=== PATIENT | female | born 1995 | race African-American/Black ===

== ENCOUNTER 2017-01-17 19:23 | Emergency (ER) | payer OTHER ==
[~2017-01-17] VITALS: Ht 154.9 cm; Wt 59.6 kg
[~2017-01-17 19:23] MED LIST: BUTA1CAP29 PO; NAPR500T3 PO; ONDA4TAB7 PO; RANI150T2 PO
[2017-01-17] MEDS ORDERED: 0.9 % SODIUM CHLORIDE 10 ML DISP.SYRIN. IV PRN (19:45)
[2017-01-17] MEDS ORDERED: IV NORMAL SALINE 500ML 500 ML IV SCH (20:00)
[2017-01-17 20:14] LABS: BILIRUBIN,URINE NEG (NEG); CLARITY,URINE CLEAR; COLOR,URINE STRAW; GLUCOSE,URINE NEG (NEG)
[2017-01-17 20:15] LABS: BACTERIA,URINE 0 /HPF (0-FEW); NITRITE,URINE NEG (NEG); RBC,URINE 0 /HPF (0-2); SQUAMOUS EPITHELIAL CELL,UR MANY /LPF; UROBILINOGEN,URINE 1 mg/dL (0.2 mg/dL); WBC,URINE OCC /HPF (0-4)
[2017-01-17 20:26] LABS: BASO # 0.1 x10^3/uL (0.0-0.2); BASO % 1 % (0-3); EOS # 0.4 x10^3/uL (0.0-0.7); EOS % 4 % (0-3); HEMATOCRIT 38.7 % (36.0-47.0); HEMOGLOBIN 12.6 g/dL (12.0-15.5); LYMPH # 2.3 x10^3/uL (1.0-4.8); LYMPH % 26 % (24-48); MEAN CORPUSCULAR HEMOGLOBIN 29 pg (25-35); MEAN CORPUSCULAR HGB CONC 33 g/dL (31-37); MEAN CORPUSCULAR VOLUME 88 fL (79-100); MONO # 0.5 x10^3/uL (0.0-1.1); MONO % 6 % (0-9); NEUT # 5.7 x10^3uL (1.8-7.7); NEUT % 64 % (31-73); PLATELET COUNT 224 x10^3/uL (140-400); RED CELL DISTRIBUTION WIDTH 12.7 % (11.5-14.5)
[2017-01-17 20:32] LABS: PREG TEST PT QUAL POSITIVE (NEG)
--- NOTE | 2017-01-17 20:57 | PHYS DOC ---
General Chief Complaint: VAGINAL BLEEDING Stated Complaint: SPOTTING,CRAMPING 9 WKS Time Seen by MD: 19:42 Problems: History of Present Illness Initial Comments Patient is a pleasant 21-year-old female 4 3 who is approximately 9 weeks by last menstrual period who for the last week has been suffering from nausea and intermittent abdominal pain in the lower abdomen described as crampy in nature with no radiation to the back. She's had mild vaginal bleeding and spotting with no passage of clots or tissue. Patient denies any trauma. She denies any prior bleeding issues or dyscrasias. Patient denies any fevers chills diarrhea UTI symptoms vaginal discharge associated with sexual transmitted disease. She does have routine [employer] care from Dr. Adamson at [place]. Timing/Duration: changing over time, intermittent Severity/Quality: mild Location: periumbilical, vaginal Radiation: none Activities at Onset: none Prior Genitourinary Problems: similar symptoms Modifying Factors: improves with movement, improves with rest Associated Symptoms: abdominal pain, nausea/vomiting Allergies: Coded Allergies: No Known Drug Allergies (Unverified , 12/17/13) Past Medical History Medical History: therapeutic , ectopic (some years back.) Surgical History: other (ectopic ) Para: 8 : 8 LMP (Females 10-50): 3 months Family History Significant Family History: no pertinent family hx Social History Smoker: non-smoker Alcohol: none Drugs: none Review of Systems Constitutional: no symptoms reported EENTM: no symptoms reported Respiratory: no symptoms reported Cardiovascular: no symptoms reported Gastrointestinal: abdominal pain (crampy in nature) nausea vomiting (bili is nonbloody) Genitourinary: denies no symptoms reported, denies see HPI, denies burning, denies discharge, denies dysuria, denies frequency, denies flank pain, denies hematuria, denies incontinence, denies pain, denies urgency, denies other Musculoskeletal: no symptoms reported Skin: no symptoms reported Psychiatric/Neurological: no symptoms reported Endocrine: no symptoms reported Hematologic/Lymphatic: no symptoms reported All Other Systems: Reviewed and Negative Physical Exam General Appearance: WD/WN, no apparent distress HEENT: PERRL/EOMI, normal ENT inspection Neck: full range of motion Cardiovascular/Respiratory: regular rate, rhythm, no M/R/G, normal peripheral pulses Gastrointestinal: normal bowel sounds, non tender, no organomegaly, no pulsatile mass Pelvic: external exam normal, speculum exam normal, bimanual exam normal, no cerv. motion tender, no masses Back: normal inspection, no CVA tenderness Extremities: normal range of motion Neurologic/Psychiatric: alert, normal mood/affect, oriented x 3 Skin: normal color, warm/dry Lymphatic: no adenopathy Orders, Labs, Meds Laboratory Tests Test 01/17/17 19:34 01/17/17 20:00 Urine Collection Type Unknown Urine Color Straw Urine Clarity Clear Urine pH 7.0 Urine Specific [place] 1.015 Urine Protein Neg (NEG-TRACE) Urine Glucose (UA) Negmg/dL (NEG) Urine Ketones (Stick) Negmg/dL (NEG) Urine Blood Neg (NEG) Urine Nitrite Neg (NEG) Urine Bilirubin Neg (NEG) Urine Urobilinogen Dipstick 1mg/dL (0.2 mg/dL) Urine Leukocyte Esterase Neg (NEG) Urine RBC 0/HPF (0-2) Urine WBC Occ/HPF (0-4) Urine Squamous Epithelial Cells Many/LPF Urine Bacteria 0/HPF (0-FEW) White Blood Count 9.0x10^3/uL (4.0-11.0) Red Blood Count 4.40x10^6/uL (3.50-5.40) Hemoglobin 12.6g/dL (12.0-15.5) Hematocrit 38.7% (36.0-47.0) Mean Corpuscular Volume 88fL (79-100) Mean Corpuscular Hemoglobin 29pg (25-35) Mean Corpuscular Hemoglobin Concent 33g/dL (31-37) Red Cell Distribution Width 12.7% (11.5-14.5) Platelet Count 224x10^3/uL (140-400) Neutrophils (%) (Auto) 64% (31-73) Lymphocytes (%) (Auto) 26% (24-48) Monocytes (%) (Auto) 6% (0-9) Eosinophils (%) (Auto) 4% (0-3) Basophils (%) (Auto) 1% (0-3) Neutrophils # (Auto) 5.7x10^3uL (1.8-7.7) Lymphocytes # (Auto) 2.3x10^3/uL (1.0-4.8) Monocytes # (Auto) 0.5x10^3/uL (0.0-1.1) Eosinophils # (Auto) 0.4x10^3/uL (0.0-0.7) Basophils # (Auto) 0.1x10^3/uL (0.0-0.2) Serum Test, Qualitative Positive (NEG) PATIENT: TOM JOEL ACCOUNT: [id number] : 1995 LOCATION: ER AGE: 21 SEX: F EXAM STATUS: REG ER ORD. PHYSICIAN: BARBARA ROY MD REASON: vaginal bleeding in early PROCEDURE: OB <14 WKS Examination: Obstetric ultrasound less than 14 weeks HISTORY History of spotting, cramping for 2 weeks. COMPARISON None available. Findings The uterus measures 11.0 x 8.0 x 6.3 centimeters. The cervical length measures 3.3 centimeters. The right ovary measures 4.8 x 2.5 x 2.5 centimeters. The left ovary measures 4.6 x 3.7 x 3.1 centimeters. Intrauterine gestational sac identified. A yolk sac is identified. Mier-rump length measures 5 millimeters corresponding to 6 weeks and 4 days. heart rate is 125 beats per minute. LMP 11/27/2016. Clinical age 7 weeks and 2 days with estimated date of delivery by LMP 09/03/2017. Estimated gestational age 6 weeks and 2 days by today's ultrasound. Estimated date of delivery by this ultrasound 09/10/2017. There is a 1.1 centimeter hypoechoic region identified superior and to the right of the gestational sac. IMPRESSION 1. Single living intrauterine with gestational age is 6 weeks and 4 days. 2. There is a 1.1 centimeter hypo echogenicity identified superior and to the right of the gestational sac likely a subchorionic bleed. Electronically signed by: Elia Shaikh (Jan 17, 2017 21:37:23) DICTATED AND SIGNED BY: ELIA SHAIKH MD DATE: 01/17/17 2137 CC: BARBARA ROY MD; PCP,NO ~ Course of her visit patient was hemodynamically stable with no limits of abdominal pain just mild nausea. She was given some Zofran and fluids are encouraged visit which improved her symptoms. Ultrasound imaging IUP 6 weeks 4 days gestation with no evidence of ectopic or free fluid in the abdomen. There is a small 1 cm area of hypoechoic superior to the itself which likely represent a subchorionic bleed. Patient will be given bleeding precautions and follow-up with her [employer]. Vital signs also been reviewed which were within normal limits. BARBARA ROY MD Jan 17, 2017 20:57
--- NOTE | 2017-01-17 21:38 | RAD ---
Examination: Obstetric ultrasound less than 14 weeks HISTORY History of spotting, cramping for 2 weeks. COMPARISON None available. Findings The uterus measures 11.0 x 8.0 x 6.3 centimeters. The cervical length measures 3.3 centimeters. The right ovary measures 4.8 x 2.5 x 2.5 centimeters. The left ovary measures 4.6 x 3.7 x 3.1 centimeters. Intrauterine gestational sac identified. A yolk sac is identified. Mar-Mac-rump length measures 5 millimeters corresponding to 6 weeks and 4 days. heart rate is 125 beats per minute. LMP 11/27/2016. Clinical age 7 weeks and 2 days with estimated date of delivery by LMP 09/03/2017. Estimated gestational age 6 weeks and 2 days by today's ultrasound. Estimated date of delivery by this ultrasound 09/10/2017. There is a 1.1 centimeter hypoechoic region identified superior and to the right of the gestational sac. IMPRESSION 1. Single living intrauterine with gestational age is 6 weeks and 4 days. 2. There is a 1.1 centimeter hypo echogenicity identified superior and to the right of the gestational sac likely a subchorionic bleed. Electronically signed by: Elia Shaikh (Jan 17, 2017 21:37:23)
[2017-01-17 22:15] VITALS: BP 110/76
[2017-01-17] MEDS ORDERED: ONDANSETRON PF 4 MG/2 ML VIAL. IV ONE (22:30)
[2017-01-17] MEDS ORDERED: DIPHENHYDRAMINE 50 MG/ML VIAL IM ONE (22:45)
== END 2017-01-17 22:22 | disposition home or self-care (01) ==
LOC: ER 19:23
DX: O26.891 Other specified pregnancy related conditions, first trimester (principal); R10.30 Lower abdominal pain, unspecified; R11.0 Nausea; O46.91 Antepartum hemorrhage, unspecified, first trimester; Z3A.09 9 weeks gestation of pregnancy
CPT/HCPCS: 36415; 76801; 81001; 84702; 84703; 85027; 86900; 86901; 96361; 96372; 96374; 99285; J1200; J2405; J7040

== ENCOUNTER 2017-01-25 14:16 | Emergency (ER) | payer OTHER ==
[~2017-01-25] VITALS: Ht 154.9 cm; Wt 59.0 kg
[2017-01-25] MEDS ORDERED: METO10TA81 PO (15:09)
--- NOTE | 2017-01-25 15:10 | PHYS DOC ---
Past History Past Medical History: No Pertinent History Past Surgical History: Cholecystectomy Smoking: Non-smoker Alcohol Use: None Drug Use: None Adult General Chief Complaint Chief Complaint: HEADACHE HPI HPI Patient is a 21 year old female who presents with complaint of headache. Patient states that she has had a headache for the past 2 days. Patient states that her headache is left-sided. Patient also states that she has associated vision changes in the right eye which she states is typical for her previous history of headaches. Patient has history of migraine headaches. Patient states that she normally takes Tylenol or ibuprofen for her symptoms. Patient is currently 8 weeks . Patient is following with Dr. Garduno for care. Patient denies any abdominal pain, vaginal bleeding, dysuria, or urinary frequency. Patient currently rates her pain as 8 out of 10. Patient denies any focal loss of motor strength, vision loss, or difficulty with speech or swallowing associated with her symptoms. Review of Systems Review of Systems Constitutional: Denies fever or chills [] Eyes: Denies change in visual acuity, redness, or eye pain [] HENT: Denies nasal congestion or sore throat [] Respiratory: Denies cough or shortness of breath [] Cardiovascular: Denies chest pain or edema [] GI: Denies abdominal pain, nausea, vomiting, bloody stools or diarrhea [] : Denies vaginal bleeding, dysuria or hematuria [] Musculoskeletal: Denies back pain or joint pain [] Integument: Denies rash or skin lesions [] Neurologic: Headache, denies focal weakness or sensory changes [] Allergies Allergies Allergies Coded Allergies Type Severity Reaction Last Updated Verified No Known Drug Allergies 01/25/17 No Physical Exam Physical Exam Constitutional: Well developed, well nourished, no acute distress, non-toxic appearance. [] HENT: Normocephalic, atraumatic, bilateral external ears normal, oropharynx moist, no oral exudates, nose normal. [] Eyes: PERRLA, EOMI, conjunctiva normal, no discharge. [] Neck: Normal range of motion, no tenderness, supple, no stridor. [] Cardiovascular:Heart rate regular rhythm, no murmur [] Lungs & Thorax: Bilateral breath sounds clear to auscultation [] Abdomen: Bowel sounds normal, soft, no tenderness, no masses, no pulsatile masses. [] Skin: Warm, dry, no erythema, no rash. [] Back: No tenderness, no CVA tenderness. [] Extremities: No tenderness, no cyanosis, no clubbing, ROM intact, no edema. [] Neurologic: Alert and oriented X 3, normal motor function, normal sensory function, no focal deficits noted. [] Current Patient Data Vital Signs Vital Signs Date Time Temp Pulse Resp B/P (MAP) Pulse Ox O2 Delivery O2 Flow Rate FiO2 01/25/17 14:28 97.7 57 18 95 Room Air EKG EKG Not performed [] Radiology/Procedures Radiology/Procedures Not performed [] Course & Med Decision Making Course & Med Decision Making Pertinent Labs and Imaging studies reviewed. (See chart for details) Patient's exam is benign and patient's symptoms appear consistent with previous episodes of migraine headaches. Patient was given oral Reglan and Tylenol in the emergency department for treatment. Spoke with patient regarding need for likely neurology referral as patient has not had this in the past for her headaches, however I did explain that her current may complicate a migraine workup and may also contribute to her headache syndrome. Patient written for prescription for Reglan for continued treatment. Advised patient to follow-up in one week with her primary doctor and return to emergency department for any worsening symptoms. Patient voiced understanding and in agreement with treatment plan. Dragon Disclaimer Dragon Disclaimer This chart was dictated in whole or in part using Voice Recognition software in a busy, high-work load, and often noisy Emergency Department environment. It may contain unintended and wholly unrecognized errors or omissions. Departure Departure: Impression: Primary Impression: Migraine Disposition: 01 HOME, SELF-CARE Condition: IMPROVED Referrals: PCP,SNEHA (PCP) Patient Instructions: Migraine Headache Additional Instructions: Follow-up with your primary doctor in 1 week for reevaluation. Return to the emergency department for any worsening symptoms. Scripts Metoclopramide Hcl (REGLAN) 10 Mg Tablet 1 TAB PO TID Y for HEADACHE, #30 TAB Prov: DARIUSZ HURTADO MD 01/25/17 Problem Qualifiers Primary Impression: Migraine Migraine type: with aura Status migrainosus presence: without status migrainosus Intractability: not intractable Qualified Codes: G43.109 - Migraine with aura, not intractable, without status migrainosus DARIUSZ HURTADO MD January 25, 2017 15:09
[2017-01-25] MEDS ORDERED: ACETAMINOPHEN 325 MG TABLET PO ONE (15:30)
[2017-01-25] MEDS ORDERED: METOCLOPRAMIDE 10 MG TABLET PO ONE (15:30)
[2017-01-25 15:35] VITALS: BP 107/47
== END 2017-01-25 15:40 | disposition home or self-care (01) ==
LOC: ER 14:16
DX: O26.891 Other specified pregnancy related conditions, first trimester (principal); G43.909 Migraine, unspecified, not intractable, without status migrainosus; Z3A.08 8 weeks gestation of pregnancy
CPT/HCPCS: 99283; J8597

== ENCOUNTER 2017-04-06 14:43 | Emergency (ER) | payer OTHER ==
[~2017-04-06] VITALS: Ht 154.9 cm; Wt 59.9 kg
[~2017-04-06 14:43] MED LIST changes: +METO10TA81 PO
[2017-04-06 16:10] VITALS: BP 95/58
[2017-04-06] MEDS ORDERED: ALPR0.25 PO (16:15)
--- NOTE | 2017-04-06 16:15 | PHYS DOC ---
Past History Past Medical History: No Pertinent History Past Surgical History: Cholecystectomy Smoking: Non-smoker Alcohol Use: None Drug Use: None Adult General Chief Complaint Chief Complaint: ANXIETY/PANIC ATTACK HPI HPI Patient is a 22 year old female who presents with complaint of anxiety. Patient states that she has been having difficulty with anxiety for several weeks, however she started having severe symptoms over the past 2-3 days. Patient is currently [address] Garduno for care. The patient states that she has had an unremarkable . The patient states that she has been getting frequent episodes where she has been feeling panic and anxiety. Patient states that she has had tightness in her chest associated with the symptoms. Patient denies chest pain at this time. Patient is not on any medications currently for anxiety. Patient denies any associated fevers, vomiting, abdominal pain, vaginal bleeding, or abnormal vaginal discharge. Due to her anxiety symptoms the patient came to the emergency department for evaluation. The patient states that her symptoms have slightly improved since onset earlier today. Review of Systems Review of Systems Constitutional: Anxiety, denies fever or chills [] Eyes: Denies change in visual acuity, redness, or eye pain [] HENT: Denies nasal congestion or sore throat [] Respiratory: Denies cough or shortness of breath [] Cardiovascular: Denies substernal chest pain or edema [] GI: Denies abdominal pain, nausea, vomiting, bloody stools or diarrhea [] : Denies dysuria or hematuria [] Musculoskeletal: Denies back pain or joint pain [] Integument: Denies rash or skin lesions [] Neurologic: Denies headache, focal weakness or sensory changes [] Allergies Allergies Allergies Coded Allergies Type Severity Reaction Last Updated Verified No Known Drug Allergies 01/25/17 No Physical Exam Physical Exam Constitutional: Alert, afebrile, appears mildly anxious. [] HENT: Normocephalic, atraumatic, bilateral external ears normal, oropharynx moist, no oral exudates, nose normal. [] Eyes: PERRLA, EOMI, conjunctiva normal, no discharge. [] Neck: Normal range of motion, no tenderness, supple, no stridor. [] Cardiovascular:Heart rate regular rhythm, no murmur [] Lungs & Thorax: Bilateral breath sounds clear to auscultation [] Abdomen: Bowel sounds normal, soft, no tenderness, no masses, no pulsatile masses. [] Skin: Warm, dry, no erythema, no rash. [] Back: No tenderness, no CVA tenderness. [] Extremities: No tenderness, no cyanosis, no clubbing, ROM intact, no edema. [] Neurologic: Alert and oriented X 3, normal motor function, normal sensory function, no focal deficits noted. [] Current Patient Data Vital Signs Vital Signs Date Time Temp Pulse Resp B/P (MAP) Pulse Ox O2 Delivery O2 Flow Rate FiO2 04/06/17 16:10 82 20 95/58 (70) 97 Room Air 04/06/17 14:43 98.1 EKG EKG Not performed [] Radiology/Procedures Radiology/Procedures heart rate 158 bpm [] Course & Med Decision Making Course & Med Decision Making Pertinent Labs and Imaging studies reviewed. (See chart for details) Patient appears nontoxic and patient's heart rate is within normal limits. I contacted the patient's ROLL WEIGHER, Dr. Garduno, and discussed the case with him. He stated that the patient could be prescribed Xanax to use as needed. The patient was prescribed 0.25 mg of Xanax to take twice a day as needed for anxiety symptoms. Advised patient to follow-up with Dr. Garduno in one to 2 weeks for reevaluation and return emergency department for any worsening symptoms. Patient was understanding and in agreement with treatment plan. Dragon Disclaimer Dragon Disclaimer This chart was dictated in whole or in part using Voice Recognition software in a busy, high-work load, and often noisy Emergency Department environment. It may contain unintended and wholly unrecognized errors or omissions. Departure Departure: Impression: Primary Impression: Anxiety Additional Impression: Second trimester Disposition: 01 HOME, SELF-CARE Condition: IMPROVED Referrals: PCP,NO (PCP) Patient Instructions: Anxiety and Panic Attacks Additional Instructions: Follow-up with Dr. Garduno and 1-2 weeks. Return to the emergency department for any worsening symptoms. Scripts Alprazolam (XANAX) 0.25 Mg Tablet 1 TAB PO BID Y for ANXIETY / AGITATION, #20 TAB Prov: DARIUSZ HURTADO MD 04/06/17 Problem Qualifiers DARIUSZ HURTADO MD Apr 06, 2017 16:15
== END 2017-04-06 16:25 | disposition home or self-care (01) ==
LOC: ER 14:43
DX: O99.342 Other mental disorders complicating pregnancy, second trimester (principal); F41.9 Anxiety disorder, unspecified; Z3A.18 18 weeks gestation of pregnancy
CPT/HCPCS: 99283

== ENCOUNTER → 2017-04-12 | Outpatient (CLI) | payer OTHER ==
[2017-04-06 16:10] VITALS: BP 95/58
[~2017-04-12] MED LIST changes: +ALPR0.25 PO
--- NOTE | 2017-04-12 15:26 | RAD ---
EXAM: Obstetric ultrasound. HISTORY: Size/date discrepancy. COMPARISON: None. FINDINGS: Sonographic evaluation of the pelvis and fetus was performed transabdominally. There is a single fetus in breech presentation. heart rate is 141 bpm. Estimated gestational age based on measurements is 18 weeks 4 days. Estimated weight is 246 g. Individual measurements are commensurate. The placenta is anterior and fundal. Amniotic fluid volume is normal with amniotic fluid index 13.8 cm. The cervix is closed and measures 4.2 cm. The posterior fossa appears normal. There is no hydrocephalus. The cord insertion appears normal. The cord is three-vessel. The heart is four-chamber. Images of the spine reveal no defects. extremities appear normal. Images of the kidneys reveal no hydronephrosis. The stomach and bladder are visualized. Nose/lip morphology appears normal. The right ovary measures 2.5 x 1.7 x 2.2 cm and appears normal. The left is not visualized currently. IMPRESSION: 1. Single fetus in breech presentation. Estimated gestational age based on measurements 18 weeks 4 days. heart rate 141 bpm.
== END | disposition home or self-care (01) ==
LOC: US 09:58
PROVIDERS: ATTEND Obstetrics & Gynecology
DX: O32.1XX0 Maternal care for breech presentation, not applicable or unspecified (principal); O26.842 Uterine size-date discrepancy, second trimester; Z3A.18 18 weeks gestation of pregnancy
CPT/HCPCS: 76805

== ENCOUNTER 2019-02-12 10:30 | Emergency (ER) | payer OTHER ==
[~2019-02-12] VITALS: Ht 154.9 cm; Wt 61.2 kg
[~2019-02-12 10:30] MED LIST changes: +NAPR-514 PO; -NAPR500T3 PO
[2019-02-12 10:41] VITALS: BP 111/70
[2019-02-12] MEDS ORDERED: NAPR-683 PO (10:53)
[2019-02-12] MEDS ORDERED: CYCL-331 PO (10:54)
--- NOTE | 2019-02-12 10:54 | PHYS DOC ---
Past History Past Medical History: Anxiety Past Surgical History: Cholecystectomy, Tubal ligation Smoking: Non-smoker Alcohol Use: None Drug Use: None Adult General Chief Complaint Chief Complaint: jaw pain HPI HPI Patient is a 23 year old female who presents with complaint of right-sided jaw pain. Notes pain is been present over the past 2 days. States that the pain radiates along the right jaw towards the right anterior portion of the ear. Worsens when she opens her mouth or tries to chew on that side. Denies any dental pain or jaw swelling. No fever. Has not taking medications today for symptoms. Denies previous history of similar symptoms. No significant past medical history. Denies any recent trauma. Review of Systems Review of Systems Constitutional: Denies fever or chills [] Eyes: Denies change in visual acuity, redness, or eye pain [] HENT: Jaw pain[] Respiratory: Denies cough or shortness of breath [] Cardiovascular: Denies chest pain or edema[] GI: Denies abdominal pain, nausea, vomiting, bloody stools or diarrhea [] : Denies dysuria or hematuria [] Musculoskeletal: Denies back pain or joint pain [] Integument: Denies rash or skin lesions [] Neurologic: Denies headache, focal weakness or sensory changes [] Endocrine: Denies polyuria or polydipsia [] All other systems were reviewed and found to be within normal limits, except as documented in this note. Allergies Allergies Allergies Coded Allergies Type Severity Reaction Last Updated Verified No Known Drug Allergies 02/12/19 No Physical Exam Physical Exam Constitutional: Well developed, well nourished, no acute distress, non-toxic appearance. [] HENT: Normocephalic, atraumatic, bilateral external ears normal, no appreciable jaw swelling, no dental tenderness, tenderness to palpation along right TMJ, normal jaw occlusion. [] Eyes: PERRLA, EOMI, conjunctiva normal, no discharge. [] Neck: Normal range of motion, no tenderness, supple, no stridor. [] Cardiovascular:Heart rate regular rhythm, no murmur [] Lungs & Thorax: Bilateral breath sounds clear to auscultation [] Abdomen: Bowel sounds normal, soft, no tenderness, no masses, no pulsatile masses. [] Skin: Warm, dry, no erythema, no rash. [] Back: No tenderness, no CVA tenderness. [] Extremities: No tenderness, no cyanosis, no clubbing, ROM intact, no edema. [] Neurologic: Alert and oriented X 3, normal motor function, normal sensory function, no focal deficits noted. [] Current Patient Data Vital Signs Vital Signs Date Time Temp Pulse Resp B/P (MAP) Pulse Ox O2 Delivery O2 Flow Rate FiO2 02/12/19 10:41 97.1 77 17 94 Lab Results Not performed EKG EKG Not performed[] Radiology/Procedures Radiology/Procedures Not performed[] Course & Med Decision Making Course & Med Decision Making Pertinent Labs and Imaging studies reviewed. (See chart for details) Patient's symptoms appear consistent with arthralgia to the right TMJ. Prescribed Naprosyn and Flexeril as patient does have noted tightness along the right jaw musculature. Advised follow-up with primary doctor in the next 5-7 days if symptoms are not improving and return to the emergency department for any worsening symptoms. Patient was understanding and in agreement with treatment plan. Dragon Disclaimer Dragon Disclaimer This electronic medical record was generated, in whole or in part, using a voice recognition dictation system. Departure Departure: Impression: Primary Impression: TMJ arthralgia Disposition: HOME, SELF-CARE Condition: STABLE Referrals: PCP,NO (PCP) Patient Instructions: Temporomandibular Joint Pain-Brief Additional Instructions: Follow-up with your primary doctor in 1 week if symptoms are not improving. Return to the emergency department for any worsening symptoms. Scripts Cyclobenzaprine Hcl (CYCLOBENZAPRINE HCL) 10 Mg Tablet 1 TAB PO QHS PRN for MUSCLE SPASMS, #10 TAB Prov: DARIUSZ HURTADO MD 02/12/19 Naproxen (NAPROSYN) 500 Mg Tablet 1 TAB PO BID, #20 TAB 0 Refills Prov: DARIUSZ HURTADO MD 02/12/19 Problem Qualifiers Primary Impression: TMJ arthralgia Laterality: right Qualified Codes: M26.621 - Arthralgia of right temporomandibular joint DARIUSZ HURTADO MD February 12, 2019 10:54
== END 2019-02-12 11:05 | disposition home or self-care (01) ==
LOC: ER 10:30
DX: M26.621 Arthralgia of right temporomandibular joint (principal); F41.9 Anxiety disorder, unspecified
CPT/HCPCS: 99283

== ENCOUNTER 2019-03-28 09:49 | Emergency (ER) | payer SELFPAY ==
[~2019-03-28] VITALS: Ht 154.9 cm; Wt 67.1 kg
[~2019-03-28 09:49] MED LIST changes: +CYCL-331 PO; +NAPR-683 PO
[2019-03-28 10:00] VITALS: BP 110/62
--- NOTE | 2019-03-28 10:31 | PHYS DOC ---
Past History Past Medical History: Anxiety Past Surgical History: Cholecystectomy, Tubal ligation Smoking: Non-smoker Alcohol Use: None Drug Use: None Adult General Chief Complaint Chief Complaint: SORE THROAT HPI HPI 24-year-old female presents with sore throat and decreased voice strength to the last 7 days. The patient first woke up with a mild sore throat and decreased strength of her voice. She is continued to have hoarseness that has gotten worse and got better for the last 1 week. The last 2 days, she has had sore throat. It is worse in the morning and improve somewhat throughout the day. She denies fever or chills. She wants to make sure she doesn't have strep. Review of Systems Review of Systems Constitutional: Denies fever or chills [] Eyes: Denies change in visual acuity, redness, or eye pain [] HENT: sore throat [] Respiratory: Denies cough or shortness of breath [] Cardiovascular: No additional information not addressed in HPI [] GI: Denies abdominal pain, nausea, vomiting, bloody stools or diarrhea [] : Denies dysuria or hematuria [] Musculoskeletal: Denies back pain or joint pain [] Integument: Denies rash or skin lesions [] Neurologic: Denies headache, focal weakness or sensory changes [] Endocrine: Denies polyuria or polydipsia [] All other systems were reviewed and found to be within normal limits, except as documented in this note. Allergies Allergies Allergies Coded Allergies Type Severity Reaction Last Updated Verified No Known Drug Allergies 02/12/19 No Physical Exam Physical Exam Constitutional: Well developed, well nourished, no acute distress, non-toxic appearance. [] HENT: Normocephalic, atraumatic, bilateral external ears normal, oropharynx moist, post nasal drip with no tonsillar exudates. Bilateral tympanic membranes normal[] Eyes: PERRLA, EOMI, conjunctiva normal, no discharge. [] Neck: Normal range of motion, no tenderness, supple, no stridor. [] Cardiovascular:Heart rate regular rhythm, no murmur [] Lungs & Thorax: Bilateral breath sounds clear to auscultation [] Abdomen: Bowel sounds normal, soft, no tenderness, no masses, no pulsatile masses. [] Skin: Warm, dry, no erythema, no rash. [] Back: No tenderness, no CVA tenderness. [] Extremities: No tenderness, no cyanosis, no clubbing, ROM intact, no edema. [] Neurologic: Alert and oriented X 3, normal motor function, normal sensory function, no focal deficits noted. [] Psychologic: Affect normal, judgement normal, mood normal. [] EKG EKG [] Radiology/Procedures Radiology/Procedures [] Course & Med Decision Making Course & Med Decision Making Pertinent Labs and Imaging studies reviewed. (See chart for details) [] Dragon Disclaimer Dragon Disclaimer This electronic medical record was generated, in whole or in part, using a voice recognition dictation system. Departure Departure: Impression: Primary Impression: Acute viral pharyngitis Disposition: HOME, SELF-CARE Condition: STABLE Referrals: PCP,SNEHA (PCP) Patient Instructions: Viral Pharyngitis EVER TORREZ DO Mar 28, 2019 10:31
== END 2019-03-28 10:36 | disposition home or self-care (01) ==
LOC: ER 09:49
DX: J02.8 Acute pharyngitis due to other specified organisms (principal); B97.89 Other viral agents as the cause of diseases classified elsewhere
CPT/HCPCS: 87070; 87880; 99283

== ENCOUNTER → 2019-09-01 | Outpatient (CLI) | payer OTHER ==
--- NOTE | 2019-09-02 15:03 | RAD ---
Transabdominal pelvic ultrasound without comparison for pelvic pain. TECHNIQUE AND FINDINGS: Real-time grayscale and color and spectral Doppler evaluation of the pelvic organs is performed from a transabdominal approach. The urinary bladder is distended and provides adequate acoustic window. The uterus is anteverted and measures 7.5 x 4.7 x 3.8 cm. No myometrial abnormality is identified. The endometrium is normal in appearance measuring 7 mm in thickness. The right ovary measures 2.6 x 3.0 x 2.0 cm and demonstrates normal follicular character with normal blood flow. Left ovary measures 3.4 x 2.7 x 1.5 cm and also demonstrates normal follicular character with normal blood flow. No adnexal masses are identified. No free fluid is seen. IMPRESSION: 1. No sonographically discernible pelvic abnormality. Electronically signed by: Alexander Ferrera MD (09/02/2019 3:01 PM) [facility]
== END | disposition home or self-care (01) ==
LOC: US 13:35
PROVIDERS: ATTEND Obstetrics & Gynecology
DX: N85.4 Malposition of uterus (principal); N32.89 Other specified disorders of bladder; N94.6 Dysmenorrhea, unspecified
CPT/HCPCS: 76856

== ENCOUNTER 2019-09-30 21:40 | Emergency (ER) | payer OTHER ==
[~2019-09-30] VITALS: Ht 154.9 cm; Wt 67.1 kg
[2019-09-30 21:53] VITALS: BP 154/70
[2019-09-30 22:30] LABS: U PREG PATIENT NEGATIVE (NEG)
[2019-09-30 22:33] LABS: BACTERIA,URINE FEW /HPF (0-FEW); BILIRUBIN,URINE NEG (NEG); CLARITY,URINE HAZY; COLOR,URINE YELLOW; GLUCOSE,URINE NEG (NEG); NITRITE,URINE NEG (NEG); SQUAMOUS EPITHELIAL CELL,UR FEW /LPF; UROBILINOGEN,URINE 0.2 mg/dL (0.2 mg/dL)
[2019-09-30] MEDS ORDERED: SULF1TAB24 PO (22:46)
--- NOTE | 2019-09-30 22:47 | PHYS DOC ---
Past History Past Medical History: Anxiety, UTI Past Surgical History: Cholecystectomy, Tubal ligation Smoking: Non-smoker Alcohol Use: None Drug Use: None Adult General Chief Complaint Chief Complaint: FLANK PAIN HPI HPI Patient is a 24-year-old otherwise healthy female who presents with low back pain and urinary frequency. She denies any gross hematuria. She has had some burning with urination. She has not had any vaginal bleeding or discharge. She denies dyspareunia.[] Review of Systems Review of Systems Constitutional: Denies fever or chills [] Eyes: Denies change in visual acuity, redness, or eye pain [] HENT: Denies nasal congestion or sore throat [] Respiratory: Denies cough or shortness of breath [] Cardiovascular: No additional information not addressed in HPI [] GI: Denies abdominal pain, nausea, vomiting, bloody stools or diarrhea [] : Per history of present illness[] Musculoskeletal: Denies back pain or joint pain [] Integument: Denies rash or skin lesions [] Neurologic: Denies headache, focal weakness or sensory changes [] Endocrine: Denies polyuria or polydipsia [] All other systems were reviewed and found to be within normal limits, except as documented in this note. Allergies Allergies Allergies Coded Allergies Type Severity Reaction Last Updated Verified No Known Drug Allergies 02/12/19 No Physical Exam Physical Exam Constitutional: Well developed, well nourished, no acute distress, non-toxic appearance. [] HENT: Normocephalic, atraumatic, bilateral external ears normal, oropharynx moist, no oral exudates, nose normal. [] Eyes: PERRLA, EOMI, conjunctiva normal, no discharge. [] Neck: Normal range of motion, no tenderness, supple, no stridor. [] Cardiovascular:Heart rate regular rhythm, no murmur [] Lungs & Thorax: Bilateral breath sounds clear to auscultation [] Abdomen: Bowel sounds normal, soft, no tenderness, no masses, no pulsatile masses. [] Skin: Warm, dry, no erythema, no rash. [] Back: No tenderness, no CVA tenderness. [] Extremities: No tenderness, no cyanosis, no clubbing, ROM intact, no edema. [] Neurologic: Alert and oriented X 3, normal motor function, normal sensory function, no focal deficits noted. [] Psychologic: Affect normal, judgement normal, mood normal. [] Current Patient Data Vital Signs Vital Signs Date Time Temp Pulse Resp B/P (MAP) Pulse Ox O2 Delivery O2 Flow Rate FiO2 09/30/19 21:53 99.0 96 16 98 Room Air Lab Results Laboratory Tests Test 09/30/19 21:50 Urine Collection Type Unknown Urine Color Yellow Urine Clarity Hazy Urine pH 6.0 Urine Specific [place] 1.015 Urine Protein Neg (NEG-TRACE) Urine Glucose (UA) Neg mg/dL (NEG) Urine Ketones (Stick) Neg mg/dL (NEG) Urine Blood Neg (NEG) Urine Nitrite Neg (NEG) Urine Bilirubin Neg (NEG) Urine Urobilinogen Dipstick 0.2 mg/dL (0.2 mg/dL) Urine Leukocyte Esterase Small (NEG) Urine RBC 1-2 /HPF (0-2) Urine WBC 5-10 /HPF (0-4) Urine Squamous Epithelial Cells Few /LPF Urine Bacteria Few /HPF (0-FEW) Urine Test Negative (NEG) EKG EKG [] Radiology/Procedures Radiology/Procedures [] Course & Med Decision Making Course & Med Decision Making Pertinent Labs and Imaging studies reviewed. (See chart for details) [] Dragon Disclaimer Dragon Disclaimer This electronic medical record was generated, in whole or in part, using a voice recognition dictation system. Departure Departure: Impression: Primary Impression: Urinary tract infection Disposition: 01 HOME, SELF-CARE Condition: STABLE Referrals: PCP,NO (PCP) Patient Instructions: Urinary Tract Infection Additional Instructions: Return to the emergency department with any new or concerning symptoms Scripts Sulfamethoxazole/Trimethoprim (BACTRIM DS TABLET) 1 Each Tablet 1 TAB PO BID for URINARY TRACT INFECTION for 5 Days, #10 TAB 0 Refills Prov: MODESTA DUMONT DO 09/30/19 Problem Qualifiers Primary Impression: Urinary tract infection Urinary tract infection type: acute cystitis Hematuria presence: without hematuria Qualified Codes: N30.00 - Acute cystitis without hematuria MODESTA DUMONT DO Sep 30, 2019 22:47
== END 2019-09-30 22:50 | disposition home or self-care (01) ==
LOC: ER 21:40
DX: N30.00 Acute cystitis without hematuria (principal); Z87.440 Personal history of urinary (tract) infections; Z98.51 Tubal ligation status; Z90.49 Acquired absence of other specified parts of digestive tract
CPT/HCPCS: 81001; 81025; 87086; 99284

== ENCOUNTER 2020-02-24 12:24 | Emergency (ER) | payer OTHER ==
[~2020-02-24] VITALS: Ht 154.9 cm; Wt 67.1 kg
[~2020-02-24 12:24] MED LIST changes: +SULF1TAB24 PO
[2020-02-24 12:33] VITALS: BP 110/74
[2020-02-24] MEDS ORDERED: METH-38 PO (13:06)
--- NOTE | 2020-02-24 13:06 | PHYS DOC ---
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 She states she thinks she hurt it at work when she was lifting up her rather heavy package. She states she feels a bulge in her back. The pain is worse when she moves in certain directions. Much worse when she bends over and tries to stand up straight. She denies any dysuria or gross hematuria. [] Review of Systems: Review of Systems: Constitutional: Denies fever or chills Eyes: Denies change in visual acuity HENT: Denies nasal congestion or sore throat Respiratory: Denies cough or shortness of breath Cardiovascular: Denies chest pain or edema GI: Denies abdominal pain, nausea, vomiting, bloody stools or diarrhea : Denies dysuria Musculoskeletal: Per HPI Integument: Denies rash Neurologic: Denies headache, focal weakness or sensory changes Endocrine: Denies polyuria or polydipsia Lymphatic: Denies swollen glands Psychiatric: Denies depression or anxiety Heart Score: Risk Factors: Risk Factors: DM, Current or recent (<one month) smoker, HTN, HLP, family history of CAD, obesity. Risk Scores: Score 0 - 3: 2.5% MACE over next 6 weeks - Discharge Home Score 4 - 6: 20.3% MACE over next 6 weeks - Admit for Clinical Observation Score 7 - 10: 72.7% MACE over next 6 weeks - Early Invasive Strategies Allergies: Allergies: Allergies Coded Allergies Type Severity Reaction Last Updated Verified No Known Drug Allergies 02/12/19 No Physical Exam: PE: Constitutional: Well developed, well nourished, no acute distress, non-toxic appearance. [] HENT: Normocephalic, atraumatic, bilateral external ears normal, oropharynx moist, no oral exudates, nose normal. [] Eyes: PERRLA, EOMI, conjunctiva normal, no discharge. [] Neck: Normal range of motion, no tenderness, supple, no stridor. [] Cardiovascular:Heart rate regular rhythm, no murmur [] Lungs & Thorax: Bilateral breath sounds clear to auscultation [] Abdomen: Bowel sounds normal, soft, no tenderness, no masses, no pulsatile masses. [] Skin: Warm, dry, no erythema, no rash. [] Back: No tenderness, no CVA tenderness. [] Extremities: No tenderness, no cyanosis, no clubbing, ROM intact, no edema. [] Neurologic: Alert and oriented X 3, normal motor function, normal sensory function, no focal deficits noted. [] Psychologic: Anxious [] Current Patient Data: Vital Signs: Vital Signs Date Time Temp Pulse Resp B/P (MAP) Pulse Ox O2 Delivery O2 Flow Rate FiO2 02/24/20 12:33 98.1 92 16 110/74 (86) 98 Room Air EKG: EKG: [] Radiology/Procedures: Radiology/Procedures: [] Course & Med Decision Making: Course & Med Decision Making Pertinent Labs and Imaging studies reviewed. (See chart for details) [] Dragon Disclaimer: Dragon Disclaimer: This electronic medical record was generated, in whole or in part, using a voice recognition dictation system. Departure Departure: Impression: Primary Impression: Lumbar strain Qualified Codes: S39.012A - Strain of muscle, fascia and tendon of lower back, initial encounter Disposition: HOME/RESIDENCE PRIOR TO ADM Condition: STABLE Referrals: PCP,NO (PCP) Patient Instructions: Back Pain, Adult Additional Instructions: Return to the emergency department with any new or concerning symptoms Scripts Methocarbamol (ROBAXIN-750) 750 Mg Tablet 1 TAB PO BID for back pain for 30 Days, #60 TAB 0 Refills Prov: MODESTA DUMONT DO 02/24/20 MODESTA DUMONT DO Feb 24, 2020 13:06
== END 2020-02-24 13:13 | disposition home or self-care (01) ==
LOC: ER 12:24
DX: S39.012A Strain of muscle, fascia and tendon of lower back, initial encounter (principal); Z87.440 Personal history of urinary (tract) infections; Z90.49 Acquired absence of other specified parts of digestive tract; Z98.51 Tubal ligation status; X50.9XXA Other and unspecified overexertion or strenuous movements or postures, initial encounter; Y93.89 Activity, other specified; Y92.89 Other specified places as the place of occurrence of the external cause; Y99.8 Other external cause status
CPT/HCPCS: 99283

== ENCOUNTER 2020-07-31 16:22 | Emergency (ER) | payer OTHER ==
[~2020-07-31] VITALS: Ht 154.9 cm; Wt 67.1 kg
[~2020-07-31 16:22] MED LIST changes: +METH-38 PO
[2020-07-31 16:56] VITALS: BP 139/80
--- NOTE | 2020-07-31 17:17 | PHYS DOC ---
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 Patient states that she does not think that she needs x-rays, however just wants to get her knees checked out and wonders if she could possibly get a work excuse or an excuse for light duty. Patient denies any fever chills, visual changes, nasal congestion, cough or shortness of breath. Patient denies any chest pains abdominal pains nausea vomiting, diarrhea patient denies any exposure to the COVID-19 virus and does not wish to be tested today. Patient denies any back pain skin rashes headaches sensory changes or focal weaknesses. Patient denies any recent depressions or anxieties. During exam and interview for history of physical presentation to the emergency department patient received a phone call from her significant other stating that she needed to come home and take care of her kids immediately. Patient stood up and left the emergency department ambulatory without incident, on way towards ER exit I explained to patient the need to continue the history of her present illness, and any emergency care for the diagnosis of her presentation reasons. Also stated to patient that she would be leaving AGAINST MEDICAL ADVICE, patient stated that she could not stay and will return later when she took care of her children at home. Patient did leave this emergency department AGAINST MEDICAL ADVICE ambulatory without incident without other ED staff's knowledge or nursing care his knowledge. (PAT BAI APRN) Review of Systems Review of Systems Constitutional: Denies fever or chills Eyes: Denies change in visual acuity, redness, or eye pain HENT: Denies nasal congestion or sore throat Respiratory: Denies cough or shortness of breath Musculoskeletal: Denies back pain or joint pain [] Integument: Denies rash or skin lesions [] Neurologic: Denies headache, focal weakness or sensory changes [] All other systems were reviewed and found to be within normal limits, except as documented in this note. (PAT BAI APRN) Allergies Allergies Allergies Coded Allergies Type Severity Reaction Last Updated Verified No Known Drug Allergies 02/12/19 No (PAT BAI APRN) Physical Exam Physical Exam Constitutional: Well developed, well nourished, no acute distress, non-toxic appearance. [] HENT: Normocephalic, atraumatic, bilateral external ears normal, oropharynx moist, no oral exudates, nose normal. [] Eyes: PERRLA, EOMI, conjunctiva normal, no discharge. [] Neck: Normal range of motion, no tenderness, supple, no stridor. [] Cardiovascular:Heart rate regular rhythm, no murmur [] Lungs & Thorax: Bilateral breath sounds clear to auscultation [] Abdomen: Bowel sounds normal, soft, no tenderness, no masses, no pulsatile masses. [] Skin: Warm, dry, no erythema, no rash. [] Back: No tenderness, no CVA tenderness. [] Extremities: No tenderness, no cyanosis, no clubbing, ROM intact, no edema. [] Neurologic: Alert and oriented X 3, normal motor function, normal sensory function, no focal deficits noted. [] Psychologic: Affect normal, judgement normal, mood normal. [] (PAT BAI APRN) Current Patient Data Vital Signs Vital Signs Date Time Temp Pulse Resp B/P (MAP) Pulse Ox O2 Delivery O2 Flow Rate FiO2 07/31/20 16:56 97.9 94 18 139/80 (99) 100 (PAT BAI APRN) EKG EKG [] (PAT BAI APRN) Radiology/Procedures Radiology/Procedures [] (PAT BAI APRN) Heart Score Risk Factors: Risk Factors: DM, Current or recent (<one month) smoker, HTN, HLP, family history of CAD, obesity. Risk Scores: Risk Factors: DM, Current or recent (<one month) smoker, HTN, HLP, family history of CAD, obesity. (PAT BAI APRN) Course & Med Decision Making Course & Med Decision Making Pertinent Labs and Imaging studies reviewed. (See chart for details) During examination and interview of history of present illness, patient received a phone call from her significant other stating she needed to return home immediately that there may be a problem with one of her children. Patient stood up and started walking towards ER exit, is explained to patient she would be leaving AGAINST MEDICAL ADVICE. Patient acknowledged this and stated that she had to take care of her children for similar return at a later time. Patient le ft this emergency department AGAINST MEDICAL ADVICE, ambulatory without incident. ED nursing staff was made aware that patient left AGAINST MEDICAL ADVICE. (PAT BAI APRN) Dragon Disclaimer Dragon Disclaimer This electronic medical record was generated, in whole or in part, using a voice recognition dictation system. (PAT BAI APRN) Attending Co-Sign The patient was seen and interviewed as well as examined at the bedside. The chart was reviewed. The case was discussed. Agree with the plan of care. (EVER TORREZ DO) Departure Departure: Impression: Primary Impression: Left against medical advice Disposition: 07 AMA/ELOPED/LWBS Condition: STABLE Referrals: PCP,NO (PCP) Patient Instructions: Discharge Against Medical Advice Additional Instructions: You are leaving AGAINST MEDICAL ADVICE, I could not complete my medical examination to formulate a diagnosis, please return to the emergency department or closest emergency department if your symptoms worsen. PAT BAI APRN Jul 31, 2020 17:17 EVER TORREZ DO Aug 01, 2020 16:05
[2020-07-31] MEDS ORDERED: HYDR-1179 PO (20:01)
== END 2020-07-31 17:15 | disposition left against medical advice (07) ==
LOC: ER 16:22
DX: M25.562 Pain in left knee (principal); M25.561 Pain in right knee; F41.9 Anxiety disorder, unspecified; F32.9 Major depressive disorder, single episode, unspecified; Z87.440 Personal history of urinary (tract) infections
CPT/HCPCS: 99281

== ENCOUNTER 2020-07-31 19:12 | Emergency (ER) | payer OTHER ==
[~2020-07-31] VITALS: Ht 154.9 cm; Wt 67.1 kg
--- NOTE | 2020-07-31 19:35 | PHYS DOC ---
Past History Past Medical History: Anxiety, Depression, UTI Past Surgical History: Cholecystectomy, Tubal ligation Smoking: Non-smoker Alcohol Use: None Drug Use: None General Adult EDM: Chief Complaint: LOWER EXTREMITY SWELLING HPI: HPI: "My knees are killing me... 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 My knees are swollen.. and painful.. 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 Patient may have twisted knees at work however does not remember a specific event. History of previous injury. Pain is localized to the lateral ligaments and meniscus areas. Does have obvious edema to both knees. There is no cording. Distal neurov ascular intact. Patient denies any history of rheumatological diseases. Patient able to do straight leg lifts. Cruciate ligaments appear to be stable in both knees. There is some mild crepitation. Patient denies any recent travel outside the [facility]. Patient denies any specific ill contacts. Patient was seen earlier in the ER but left before completing evaluation because she had a nut picker her children. Review of Systems: Review of Systems: Constitutional: Denies fever or chills Eyes: Denies change in visual acuity HENT: Denies nasal congestion or sore throat Respiratory: Denies cough or shortness of breath Cardiovascular: Denies chest pain or edema GI: Denies abdominal pain, nausea, vomiting, bloody stools or diarrhea : Denies dysuria Musculoskeletal: Complains of bilateral knee pain and swelling Integument: Denies rash Neurologic: Denies headache, focal weakness or sensory changes Endocrine: Denies polyuria or polydipsia Lymphatic: Denies swollen glands Psychiatric: Denies depression or anxiety Family History: Family History: Noncontributory to presentation Current Medications: Current Meds: See nursing for home meds Allergies: Allergies: Allergies Coded Allergies Type Severity Reaction Last Updated Verified No Known Drug Allergies 02/12/19 No Physical Exam: PE: Constitutional: Well developed, well nourished, moderate acute distress, non- toxic appearance. [] HENT: Normocephalic, atraumatic, bilateral external ears normal, oropharynx moist, no oral exudates, nose normal. [] Eyes: PERRLA, EOMI, conjunctiva normal, no discharge. [] Neck: Normal range of motion, no tenderness, supple, no stridor. [] Cardiovascular:Heart rate regular rhythm, no murmur [] Lungs & Thorax: Bilateral breath sounds clear to auscultation [] Abdomen: Bowel sounds normal, soft, no tenderness, no masses, no pulsatile masses. [] Skin: Warm, dry, no erythema, no rash. [] Back: No tenderness, no CVA tenderness. [] Extremities: Bilateral knee tenderness, no cyanosis, no clubbing, ROM intact, bilateral knee edema. [] Exam of knees as per HPI Neurologic: Alert and oriented X 3, normal motor function, normal sensory function, no focal deficits noted. [] Psychologic: Affect anxious, judgement normal, mood normal. [] EKG: EKG: [] Radiology/Procedures: Radiology/Procedures: [][place] [id number] IMAGING REPORT Signed PATIENT: TOM CRUZ AACCOUNT: [id number] : 1995 LOCATION: ER AGE: 25 SEX: F EXAM STATUS: DEP ER ORD. PHYSICIAN: DALIA YANES MD REASON: bilateral knee pain and edema- ? Over use, vs twisted PROCEDURE: KNEE BILAT 4V EXAM: AP, oblique, lateral and tangential patellar views of both knees DATE: 07/31/2020 7:57 PM INDICATION: Reason: bilateral knee pain and edema- ? Over use, vs twisted / Spl. Instructions: / History: COMPARISON: No Prior FINDINGS: Right knee: No evidence of acute fracture or dislocation. Joint spaces are preserved without significant degenerative/proliferative change. No joint effusion. Neutral patellar tracking. Left knee: No evidence of acute fracture or dislocation. Joint spaces are preserved without significant degenerative/proliferative change. Small left knee joint effusion. Neutral patellar tracking. IMPRESSION: No acute fracture or dislocation of either knee. Small left knee joint effusion. No right knee joint effusion. Electronically signed by: Vic Bonilla MD (07/31/2020 9:36 PM) [facility] DICTATED AND SIGNED BY: VIC BONILLA MD DATE: 07/31/202135 CC: DALIA YANES MD; PCP,NO ~ Heart Score: Risk Factors: Risk Factors: DM, Current or recent (<one month) smoker, HTN, HLP, family history of CAD, obesity. Risk Scores: Score 0 - 3: 2.5% MACE over next 6 weeks - Discharge Home Score 4 - 6: 20.3% MACE over next 6 weeks - Admit for Clinical Observation Score 7 - 10: 72.7% MACE over next 6 weeks - Early Invasive Strategies Course & Med Decision Making: Course & Med Decision Making Pertinent Labs and Imaging studies reviewed. (See chart for details) Use ice packs as needed. Wear Nikko wrap. Follow-up primary care. Take Tylenol and ibuprofen for pain. May continue use of Voltaren. For marked pain may take a Vicoprofen up to 4 times a day. Hazard precautions discussed. Must follow- up. Impression: 1. Over Use Syndrome 2. Knee sprain [] Dragon Disclaimer: Dragon Disclaimer: This electronic medical record was generated, in whole or in part, using a voice recognition dictation system. Departure Departure: Referrals: PCP,NO (PCP) Scripts Hydrocodone/Ibuprofen (HYDROCODONE-IBUPROFEN 7.5-200 ) 1 Each Tablet 1 TAB PO PRN Q6HRS PRN for PAIN, #30 TAB 0 Refills Prov: DALIA YANES MD 07/31/20 Dragmarielle Disclaimer This chart was dictated in whole or in part using Voice Recognition software in a busy, high-work load, and often noisy Emergency Department environment. It may contain unintended and wholly unrecognized errors or omissions. DALIA YANES MD Jul 31, 2020 19:35
[2020-07-31] MEDS ORDERED: HYDR-1179 PO (20:01)
[2020-07-31 20:10] VITALS: BP 113/78
[2020-07-31 20:34] LABS: BARBITURATES NEG (NEG); BENZODIAZEPINES NEG (NEG); CANNABINOIDS NEG (NEG); COCAINE NEG (NEG); METHADONE NEG (NEG); OPIATES NEG (NEG); PHENCYCLIDINE NEG (NEG)
[2020-07-31 20:35] LABS: AMPHETAMINE/METHAMPHETAMINE NEG (NEG)
[2020-07-31 20:43] LABS: BILIRUBIN,URINE NEG (NEG); CLARITY,URINE CLEAR; COLOR,URINE YELLOW; GLUCOSE,URINE NEG (NEG)
[2020-07-31 20:44] LABS: BACTERIA,URINE 0 /HPF (0-FEW); NITRITE,URINE NEG (NEG); RBC,URINE 0 /HPF (0-2); SQUAMOUS EPITHELIAL CELL,UR OCC /LPF; UROBILINOGEN,URINE 0.2 mg/dL (0.2 mg/dL)
--- NOTE | 2020-07-31 21:38 | RAD ---
EXAM: AP, oblique, lateral and tangential patellar views of both knees DATE: 07/31/2020 7:57 PM INDICATION: Reason: bilateral knee pain and edema- ? Over use, vs twisted / Spl. Instructions: / History: COMPARISON: No Prior FINDINGS: Right knee: No evidence of acute fracture or dislocation. Joint spaces are preserved without significant degenerative/proliferative change. No joint effusion. Neutral patellar tracking. Left knee: No evidence of acute fracture or dislocation. Joint spaces are preserved without significant degenerative/proliferative change. Small left knee joint effusion. Neutral patellar tracking. IMPRESSION: No acute fracture or dislocation of either knee. Small left knee joint effusion. No right knee joint effusion. Electronically signed by: Vic Bonilla MD (07/31/2020 9:36 PM) [facility]
== END 2020-07-31 21:10 | disposition home or self-care (01) ==
LOC: ER 19:12
DX: S83.92XA Sprain of unspecified site of left knee, initial encounter (principal); S83.91XA Sprain of unspecified site of right knee, initial encounter; M70.862 Other soft tissue disorders related to use, overuse and pressure, left lower leg; M70.861 Other soft tissue disorders related to use, overuse and pressure, right lower leg; Z87.440 Personal history of urinary (tract) infections; X50.9XXA Other and unspecified overexertion or strenuous movements or postures, initial encounter; Y93.89 Activity, other specified; Y92.89 Other specified places as the place of occurrence of the external cause; Y99.0 Civilian activity done for income or pay
CPT/HCPCS: 36415; 73564; 80307; 81001; 81025; 99284

== ENCOUNTER 2020-12-02 16:20 | Emergency (ER) | payer OTHER ==
[~2020-12-02] VITALS: Ht 154.9 cm; Wt 67.1 kg
[~2020-12-02 16:20] MED LIST changes: +HYDR-1179 PO
[2020-12-02 16:42] VITALS: BP 113/78
--- NOTE | 2020-12-02 17:17 | RAD ---
EXAM: Right ankle, 3 views. HISTORY: Pain. COMPARISON: None. FINDINGS: 3 views of the right ankle are obtained. There is no fracture, dislocation or subluxation. The ankle mortise is intact. There is no osteochondral lesion. IMPRESSION: No acute osseous finding. Electronically signed by: Cindi Jean MD (12/02/2020 5:15 PM) [id number]
[2020-12-02] MEDS: IBUPROFEN 600 MG TABLET. PO ONE (17:21)
--- NOTE | 2020-12-02 17:26 | PHYS DOC ---
Past History Past Medical History: No Pertinent History Past Surgical History: Cholecystectomy, Tubal ligation, Other Additional Past Surgical Histo: WISDOM TEETH Smoking: Non-smoker Alcohol Use: None Drug Use: None General Adult EDM: Chief Complaint: MECHANICAL FALL HPI: HPI: Patient is a [age] year old [sex] who presents with [] Review of Systems: Review of Systems: Constitutional: Denies fever or chills Eyes: Denies redness or eye pain HENT: Denies nasal congestion or sore throat Respiratory: Denies cough or shortness of breath Cardiovascular: Denies chest pain or palpitations GI: Denies abdominal pain, nausea, or vomiting : Denies dysuria or hematuria Musculoskeletal: Denies back pain or joint pain Integument: Denies rash or skin lesions Neurologic: Denies headache, focal weakness or sensory changes Complete systems were reviewed and found to be within normal limits, except as documented in this note. Current Medications: Current Meds: Current Medications Medications (Trade) Dose Ordered Sig/Mauri Start Time Stop Time Status Last Admin Dose Admin Ibuprofen (Motrin) 600 mg 1X ONCE 12/02/20 17:00 12/02/20 17:10 DC 12/02/20 17:21 600 MG Allergies: Allergies: Allergies Coded Allergies Type Severity Reaction Last Updated Verified No Known Drug Allergies 02/12/19 No Physical Exam: PE: Constitutional: Well developed, well nourished, no acute distress, non-toxic appearance HENT: Normocephalic, atraumatic Eyes: PERRL, EOMI, conjunctiva normal, no discharge Neck: Normal range of motion, no tenderness, supple Lungs & Thorax: No respiratory distress, equal chest rise and fall Abdomen: Soft, no tenderness Skin: Warm, dry, no erythema, no rash Back: No tenderness, no CVA tenderness Extremities: No tenderness, ROM intact, no edema Neurologic: Alert and oriented X 3, normal motor function, normal sensory function, no focal deficits noted Psychologic: Affect normal, judgment normal Current Patient Data: Vital Signs: Vital Signs Date Time Temp Pulse Resp B/P (MAP) Pulse Ox O2 Delivery O2 Flow Rate FiO2 12/02/20 16:42 98.3 104 16 113/78 (90) 98 Room Air EKG: EKG: [] Radiology/Procedures: Radiology/Procedures: PROCEDURE: ANKLE RIGHT 3V EXAM: Right ankle, 3 views. HISTORY: Pain. COMPARISON: None. FINDINGS: 3 views of the right ankle are obtained. There is no fracture, dislocation or subluxation. The ankle mortise is intact. There is no osteochondral lesion. IMPRESSION: No acute osseous finding. Electronically signed by: Cindi Jean MD (12/02/2020 5:15 PM) [id number] Heart Score: C/O Chest Pain: N/A Course & Med Decision Making: Course & Med Decision Making Pertinent Labs and Imaging studies reviewed. (See chart for details) Patient stable for discharge with outpatient follow-up with PCP. Discussed findings and plan with patient, who acknowledges understanding and agreement. Dragon Disclaimer: Fortuna Vini Disclaimer: This electronic medical record was generated, in whole or in part, using a voice recognition dictation system. Splinting Splinting : Location: Right ankle Pre-Made Type: Nikko bandage Pre-Proc Neuro Vasc Exam: normal Post-Proc Neuro Vasc Exam: normal, unchanged from pre-exam Departure Departure: Impression: Primary Impression: Right ankle sprain Qualified Codes: S93.401A - Sprain of unspecified ligament of right ankle, initial encounter Additional Impressions: Fall Qualified Codes: W19.XXXA - Unspecified fall, initial encounter Vaginal discharge Disposition: 01 DC HOME SELF CARE/HOMELESS Condition: STABLE Referrals: PCP,NO (PCP) Patient Instructions: Ankle Sprain, [id number], Elastic Bandage and RICE, Fall Prevention and Home Safety, [id number], Vaginitis, [id number] Additional Instructions: Take over the counter Tylenol and/or Ibuprofen for pain or discomfort. Scripts Metronidazole (FLAGYL) 500 Mg Tablet 1 TAB PO BID for Vaginitis for 7 Days, #14 TAB Prov: PAT GILLILAND DO 12/02/20 PAT GILLILAND DO Dec 02, 2020 17:26
[2020-12-02 18:03] LABS: BILIRUBIN,URINE NEG (NEG); CLARITY,URINE CLEAR; COLOR,URINE YELLOW; GLUCOSE,URINE NEG (NEG)
[2020-12-02 18:04] LABS: NITRITE,URINE NEG (NEG); UROBILINOGEN,URINE 0.2 mg/dL (0.2 mg/dL)
[2020-12-02 18:09] LABS: BACTERIA,URINE FEW /HPF (0-FEW); SQUAMOUS EPITHELIAL CELL,UR MOD /LPF
[2020-12-02] MEDS ORDERED: METR500T PO (18:23)
[2020-12-02 18:51] LABS: U PREG PATIENT NEGATIVE (NEG)
== END 2020-12-02 18:11 | disposition home or self-care (01) ==
LOC: ER 16:20
DX: S93.401A Sprain of unspecified ligament of right ankle, initial encounter (principal); N89.8 Other specified noninflammatory disorders of vagina; W10.8XXA Fall (on) (from) other stairs and steps, initial encounter; Y93.89 Activity, other specified; Y92.89 Other specified places as the place of occurrence of the external cause; Y99.8 Other external cause status
CPT/HCPCS: 36415; 73610; 81001; 81025; 87086; 87491; 87591; 99284

== ENCOUNTER 2020-12-12 19:39 | Emergency (ER) | payer OTHER ==
[~2020-12-12 19:39] MED LIST changes: +METR500T PO
[2020-12-12] MEDS ORDERED: IBUPROFEN 600 MG TABLET. PO ONE (21:00)
[2020-12-12] MEDS ORDERED: HYDROcodone/APAP 5/325MG 1 TAB TABLET PO ONE (21:00)
[2020-12-12] MEDS ORDERED: IBUP600T16 PO (21:19)
--- NOTE | 2020-12-12 21:20 | PHYS DOC ---
Past History Past Medical History: No Pertinent History Past Surgical History: Cholecystectomy, Tubal ligation, Other Additional Past Surgical Histo: WISDOM TEETH Smoking: Non-smoker Alcohol Use: None Drug Use: None Adult General Chief Complaint Chief Complaint: HEADACHE HPI HPI Patient is a 25-year-old female presents emergency department complaining of a mild headache that radiates from the left side of her lower jaw up to her ear area. Patient states she feels some numbness to her ear. Patient states this has been going on for several months. Patient denies any visual disturbances, states this is not the worst headache she has ever had, reports a 4/10 pain on a 1-10 pain scale. Patient denies any nausea vomiting diarrhea abdominal pain or recent fever or chills. Patient denies chest pain. Patient denies any other physical complaints or physical concerns. Review of Systems Review of Systems 14 body systems of review of systems have been reviewed. See HPI for pertinent positives and negative responses, otherwise all other systems are negative, nonpertinent or noncontributory. Current Medications Current Medications Current Medications Medications (Trade) Dose Ordered Sig/Mauri Start Time Stop Time Status Last Admin Dose Admin Acetaminophen/ Hydrocodone Bitart (Lortab 5/325) 2 tab 1X ONCE 12/12/20 21:00 12/12/20 21:01 DC Ibuprofen (Motrin) 600 mg 1X ONCE 12/12/20 21:00 12/12/20 21:01 DC Allergies Allergies Allergies Coded Allergies Type Severity Reaction Last Updated Verified No Known Drug Allergies 02/12/19 No Physical Exam Physical Exam Constitutional: Well developed, well nourished, no acute distress, non-toxic appearance. 25-year-old female no apparent distress. HENT: Normocephalic, atraumatic, bilateral external ears normal, oropharynx moist, no oral exudates, nose normal. Bilateral TMs within normal limits, bilateral external auditory canals within normal limits no drainage appreciated. No lymphadenopathy of the head or neck appreciated. Patient's tongue dry, covered with oranges color food material, patient was eating Doritos during physical exam. No drooling, no trismus appreciated. Oropharynx pink, no deep tissue infectious process appreciated, no tonsillar swelling appreciated. Patient able to distinguish 1 versus two-point noxious stimuli to face and ears, no facial droop appreciated, no tongue deviation appreciated. Eyes: PERRLA, EOMI, conjunctiva normal, no discharge. Neck: Normal range of motion, no tenderness, supple, no stridor. Cardiovascular:Heart rate regular rhythm, no murmur Lungs & Thorax: Bilateral breath sounds clear to auscultation Abdomen: Bowel sounds normal, soft, no tenderness, no masses, no pulsatile masses. Skin: Warm, dry, no erythema, no rash. Back: No tenderness, no CVA tenderness. Extremities: No tenderness, no cyanosis, no clubbing, ROM intact, no edema. Neurologic: Alert and oriented X 3, normal motor function, normal sensory function, no focal deficits noted. Psychologic: Affect normal, judgement normal, mood normal. Current Patient Data Lab Results Laboratory Tests Test 12/12/20 20:18 POC Urine HCG, Qualitative hcg negative (Negative) EKG EKG [] Radiology/Procedures Radiology/Procedures [] Heart Score C/O Chest Pain: No Risk Factors: Risk Factors: DM, Current or recent (<one month) smoker, HTN, HLP, family history of CAD, obesity. Risk Scores: Risk Factors: DM, Current or recent (<one month) smoker, HTN, HLP, family histo ry of CAD, obesity. Course & Med Decision Making Course & Med Decision Making Pertinent Labs and Imaging studies reviewed. (See chart for details) 25-year-old female, vital signs reviewed, presents emergency department com plaining of headache and facial pain with your numbness. Physical examination is concerning for mild dehydration, facial neurological sensations most likely facial neuralgia related to onset of headache. Will treat with 2 tablets of 5/325 hydrocodone, and 600 mg Motrin. Encourage patient to increase fluid intake. Patient gave verbal understanding of recommendations, home medication use, increase fluids, follow-up with primary care, patient will be given primary care provider to follow-up with, return to ER precautions and concerns, patient discharged home without incident Dragon Disclaimer Dragon Disclaimer This electronic medical record was generated, in whole or in part, using a voice recognition dictation system. Departure Departure: Impression: Primary Impression: Headache Additional Impressions: Facial neuralgia Dehydration Disposition: 01 DC HOME SELF CARE/HOMELESS Condition: GOOD Referrals: PCP,SNEHA (PCP) THOMPSON CAPUTO Patient Instructions: Dehydration, Adult Additional Instructions: Please take medication as prescribed, please make an appointment to see Jan Caputo tomorrow for further evaluation of your facial sensations. Return to the emergency department for worsening symptoms or other concerns. Scripts Ibuprofen (IBUPROFEN) 600 Mg Tablet 600 MG PO TID for PAIN, #20 TAB 0 Refills Prov: PAT BAI APRN 12/12/20 Problem Qualifiers Primary Impression: Headache Headache type: unspecified Headache chronicity pattern: unspecified pattern Intractability: not intractable Qualified Codes: R51.9 - Headache, unspecified PAT BAI APRN Dec 12, 2020 21:20
== END 2020-12-12 21:30 | disposition home or self-care (01) ==
LOC: ER 19:39
DX: R51.9 Headache, unspecified (principal); G58.8 Other specified mononeuropathies; E86.0 Dehydration
CPT/HCPCS: 81025; 99283

== ENCOUNTER 2021-06-21 23:39 | Emergency (ER) | payer OTHER ==
[~2021-06-21] VITALS: Ht 154.9 cm; Wt 75.3 kg
[~2021-06-21 23:39] MED LIST changes: +IBUP600T16 PO
[2021-06-21 23:55] VITALS: BP 140/89
[2021-06-22] MEDS ORDERED: MORPHINE SULFATE 4 MG/ML DISP.SYRIN. IV ONE ×2 (00:45→03:00)
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
[2021-06-22] MEDS ORDERED: CEPHALEXIN 250 MG CAPSULE ONE (02:30)
[2021-06-22] MEDS ORDERED: CEPH500C PO (02:31)
[2021-06-22] MEDS ORDERED: HYDR-2155 PO (02:59)
[2021-06-22] MEDS ORDERED: CEPHALEXIN 250 MG CAPSULE PO ONE (03:00)
== END 2021-06-22 03:07 | disposition home or self-care (01) ==
LOC: ER 23:39
DX: S80.812A Abrasion, left lower leg, initial encounter (principal); S80.811A Abrasion, right lower leg, initial encounter; S40.812A Abrasion of left upper arm, initial encounter; S40.811A Abrasion of right upper arm, initial encounter; S30.810A Abrasion of lower back and pelvis, initial encounter; Y08.89XA Assault by other specified means, initial encounter; Y93.89 Activity, other specified; Y92.89 Other specified places as the place of occurrence of the external cause; Y99.8 Other external cause status
CPT/HCPCS: 96374; 96376; 99284; J2270

== ENCOUNTER 2021-10-07 16:59 | Emergency (ER) | payer OTHER ==
[~2021-10-07] VITALS: Ht 160 cm; Wt 73.1 kg
[~2021-10-07 16:59] MED LIST changes: +CEPH500C PO; -CYCL-331 PO; +CYCL10TA19 PO; +HYDR-2155 PO
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
[2021-10-07 18:22] VITALS: BP 132/70
[2021-10-07 19:07] LABS: INFLUENZA A PATIENT NEGATIVE (NEGATIVE); INFLUENZA B PATIENT NEGATIVE (NEGATIVE)
[2021-10-07] MEDS ORDERED: AMOX500C PO (19:09)
== END 2021-10-07 19:17 | disposition home or self-care (01) ==
LOC: ER 16:59
DX: J02.0 Streptococcal pharyngitis (principal); Z20.822 Contact with and (suspected) exposure to COVID-19
CPT/HCPCS: 87428; 87880; 99283